=== PATIENT | male | born 1940 | race African-American/Black ===

== ENCOUNTER 2016-10-08 07:26 | Day surgery (SDC) | payer OTHER ==
[2016-10-08] MEDS ORDERED: NS 500 ML IV 500 ML IV ONE (09:13)
[2016-10-08] MEDS ORDERED: TETRACAINE 0.5% OPHTH 1 DOSE AFFEYE ONE ×2 (09:45→12:16)
[2016-10-08] MEDS ORDERED: VIGAMOX 0.5% OPHTH 1 DOSE AFFEYE ONE ×5 (09:50→13:19)
[2016-10-08] MEDS ORDERED: PROLENSA OPHTH 1 DOSE AFFEYE ONE (10:01)
[2016-10-08] MEDS ORDERED: ALPHAGAN-P OPHTH 1 DOSE AFFEYE ONE (10:02)
[2016-10-08] MEDS ORDERED: AK-DILATE 2.5% OPHTH 1 DOSE OP ONE ×3 (10:03→10:05)
[2016-10-08] MEDS ORDERED: CYCLOGYL 1% OPHTH 1 DOSE OP ONE ×3 (10:03→10:05)
[2016-10-08] MEDS ORDERED: MYDRIACIL OPHTH 1 DOSE AFFEYE ONE ×3 (10:03→10:05)
[2016-10-08] MEDS ORDERED: BETADINE OPHTH SOLN 5% EACHEYE ONE (12:16)
[2016-10-08] MEDS ORDERED: ADRENALINE CHL INJ IJ ONE ×2 (13:01→13:09)
[2016-10-08] MEDS ORDERED: XYLOCAINE-MPF 1% IJ ONE ×2 (13:01→13:09)
[2016-10-08] MEDS ORDERED: DUOVISC IO ONE ×2 (13:01→13:09)
[2016-10-08] MEDS ORDERED: BSS OPHTH (PLAIN) 500 ML with VANCOMYCIN HCL 500 MG VIAL 25 MG, ADRENALINE CHL INJ 1 MG IR ONE ×6 (13:02)
[2016-10-08 15:18] VITALS: BP 156/88
== END 2016-10-08 13:45 | disposition home or self-care (01) ==
LOC: SURG1 07:26
PROVIDERS: ATTEND Ophthalmology
PROC: 08RK3JZ Replacement of Left Lens with Synthetic Substitute, Percutaneous Approach (ICD-10-PCS; principal; 2016-10-08 18:30)
PROC: 08DK3ZZ Extraction of Left Lens, Percutaneous Approach (ICD-10-PCS; principal; 2016-10-08 18:30)
DX: H25.12 Age-related nuclear cataract, left eye (principal); H25.012 Cortical age-related cataract, left eye
CPT/HCPCS: 99100; A4217; J0170; J3370

== ENCOUNTER 2016-10-22 07:16 | Day surgery (SDC) | payer OTHER ==
[2016-10-22] MEDS ORDERED: NS 500 ML IV 500 ML IV ONE (07:21)
[2016-10-22] MEDS ORDERED: TETRACAINE 0.5% OPHTH 1 DOSE AFFEYE ONE ×4 (07:30→10:15)
[2016-10-22] MEDS ORDERED: VIGAMOX 0.5% OPHTH 1 DOSE AFFEYE ONE ×6 (07:35→10:26)
[2016-10-22] MEDS ORDERED: PROLENSA OPHTH 1 DOSE AFFEYE ONE (07:46)
[2016-10-22] MEDS ORDERED: ALPHAGAN-P OPHTH 1 DOSE AFFEYE ONE (07:47)
[2016-10-22] MEDS ORDERED: CYCLOGYL 1% OPHTH 1 DOSE OP ONE ×3 (07:48→07:50)
[2016-10-22] MEDS ORDERED: AK-DILATE 2.5% OPHTH 1 DOSE OP ONE ×3 (07:48→07:50)
[2016-10-22] MEDS ORDERED: MYDRIACIL OPHTH 1 DOSE AFFEYE ONE ×3 (07:48→07:50)
[2016-10-22] MEDS ORDERED: BETADINE OPHTH SOLN 5% EACHEYE ONE (10:02)
[2016-10-22] MEDS ORDERED: ADRENALINE CHL INJ IJ ONE ×2 (10:12→10:15)
[2016-10-22] MEDS ORDERED: XYLOCAINE-MPF 1% IJ ONE ×2 (10:13→10:15)
[2016-10-22] MEDS ORDERED: DUOVISC IO ONE ×2 (10:13→10:15)
[2016-10-22] MEDS ORDERED: BSS OPHTH (PLAIN) 500 ML with VANCOMYCIN HCL 500 MG VIAL 25 MG, ADRENALINE CHL INJ 1 MG IR ONE ×3 (10:15)
[2016-10-22 13:42] VITALS: BP 147/86
== END 2016-10-22 10:50 | disposition home or self-care (01) ==
LOC: SURG1 07:16
PROVIDERS: ATTEND Ophthalmology
PROC: 08DJ3ZZ Extraction of Right Lens, Percutaneous Approach (ICD-10-PCS; principal; 2016-10-22 11:15)
PROC: 08RJ3JZ Replacement of Right Lens with Synthetic Substitute, Percutaneous Approach (ICD-10-PCS; principal; 2016-10-22 11:15)
DX: H25.11 Age-related nuclear cataract, right eye (principal); H25.011 Cortical age-related cataract, right eye
CPT/HCPCS: 99100; A4217; J0170; J3370